=== PATIENT | female | born 1965 | race Caucasian/White ===

== ENCOUNTER 2020-02-04 08:52 | Outpatient (CLI) | payer BC, SELFPAY ==
--- NOTE | ~2020-02-04 | MM_ITS ---
EXAMINATION: MM screening [facility] w ruby HISTORY: Screening mammogram TECHNIQUE: Craniocaudal and mediolateral oblique 3-D tomosynthesis images were obtained and synthetic 2-D images were generated. CAD analysis was submitted and interpreted. COMPARISON: 01/2019, 01/02/2018, 01/31/2017 bilateral digital screening mammogram examinations BREAST PARENCHYMAL COMPOSITION: The breasts are extremely dense, which lowers the sensitivity of mamm ography. FINDINGS: There is no evidence of suspicious mass, calcification, or architectural distortion to sugg est malignancy in either breast. There has been no suspicious interval change. IMPRESSION: 1. No mammographic evidence of malignancy. 2. Recommend routine screening mammography in one year. BI-RADS Category 1: Negative Reviewed, dictated and finalized at location A. 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
== END 2020-02-04 08:53 | disposition home or self-care (01) ==
LOC: ANHIMG 08:54
PROVIDERS: PCP Internal Medicine; Visit Provider Nurse Practitioner Obstetrics & Gynecology
DX: Z12.31 Encounter for screening mammogram for malignant neoplasm of breast (principal)
CPT/HCPCS: 77063; 77067

== ENCOUNTER 2021-02-18 14:48 | Outpatient (CLI) | payer BC, SELFPAY ==
--- NOTE | ~2021-02-18 | MM_ITS ---
EXAMINATION: MM screening [facility] BI w ruby HISTORY: Screening mammogram TECHNIQUE: Craniocaudal and mediolateral oblique 3-D tomosynthesis images were obtained and synthetic 2-D images were generated. CAD analysis was submitted and interpreted. COMPARISON: 02/04/2020, 01/15/2019, 01/02/2018 BREAST PARENCHYMAL COMPOSITION: The breasts are heterogeneously dense, which may obscure small masses . FINDINGS: There is no evidence of suspicious mass, calcification, or architectural distortion to sugg est malignancy in either breast. There has been no suspicious interval change. IMPRESSION: 1. No mammographic evidence of malignancy. 2. Recommend routine screening mammography in one year. BI-RADS Category 1: Negative Reviewed, dictated and finalized at location A. 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
== END 2021-02-18 14:49 | disposition home or self-care (01) ==
LOC: ANHIMG 14:50
PROVIDERS: PCP Internal Medicine; Visit Provider Nurse Practitioner Obstetrics & Gynecology
DX: Z12.31 Encounter for screening mammogram for malignant neoplasm of breast (principal)
CPT/HCPCS: 77063; 77067

== ENCOUNTER → 2021-06-24 11:57 | Outpatient (CLI) | payer BC, SELFPAY ==
--- NOTE | ~2021-06-24 | DEXA_ITS ---
Bone Density Report Name: LEYLA CABA Age: 55 Sex: Female Ethnicity: White Date of : 1965 Indication: osteopenia; postmenopausal Referring Provider: Faraz, Carmen eBnitez Study: Bone densitometry was performed. Exam Date: June 24, 2021 Accession number: [id number] Bone Density: Region BMD T-score Z-score Classification AP Spine (L1, L3, L4) 0.909 -1.3 -0.3 Osteopenia Femoral Neck (Left) 0.685 -1.5 -0.4 Osteopenia Total Hip (Left) 0.789 -1.3 -0.6 Osteopenia Femoral Neck (Right) 0.726 -1.1 -0.1 Osteopenia Total Hip (Right) 0.782 -1.3 -0.7 Osteopenia Total Hip Mean 0.786 -1.3 -0.7 Osteopenia World Health Organization criteria for BMD impression classify patients as: Normal (T-score at or above -1.0), Osteopenia (T-score between -1.0 and -2.5), or Osteoporosis (T-score at or below -2.5). 10-year Fracture Risk(1): Major Osteoporotic Fracture 5.9% Hip Fracture 0.4% Reported Risk Factors: [place] (), Neck BMD=0.685, BMI=21.8 (1) FRAX(R) Version 3.08. Fracture probability calculated for an untreated patient. Fracture probability may be lower if the patient has received treatment. Previous Exams: Region Exam Age BMD T-score BMD Change BMD Change Date g/cm2 vs Baseline vs Previous AP Spine(L1, L3, L4) 06/24/2021 55 0.909 -1.3 -0.058* -0.026* 12/25/2018 53 0.935 -1.1 -0.031* -0.031* 03/03/2014 48 0.966 -0.8 Total Hip(Left) 06/24/2021 55 0.789 -1.3 -0.031* -0.029* 12/25/2018 53 0.818 -1.0 -0.002 -0.002 03/03/2014 48 0.821 -1.0 Total Hip(Right) 06/24/2021 55 0.782 -1.3 -0.059* -0.021 12/25/2018 53 0.802 -1.1 -0.038* -0.038* 03/03/2014 48 0.841 -0.8 *Denotes significance at 95% confidence level, LSC for AP Spine = 0.022 g/cm2, LSC for Total Hip = 0.027 g/cm2 Clinical Information Provided by Patient: Has used the following medications: Vitamin D, Calcium, MTV, LEVOTHYROXINE Patient maximum height was 70.5 Menopause Age: 43 No regular weight bearing exercise Drinks caffeinated beverages Onset of menses at age 13 Number of children 2 Impression: The patient has low bone mass, based on the Left Femoral Neck T-score. The patient has an estimated ten-year risk of hip fracture of 0.4% and an estimated ten-year risk of major fracture of 5.9%, based on the WHO FRAX algorithm. The BMD for th
== END ==
PROVIDERS: PCP Internal Medicine; Visit Provider Nurse Practitioner Obstetrics & Gynecology
DX: Z13.820 Encounter for screening for osteoporosis (principal); Z78.0 Asymptomatic menopausal state; M85.88 Other specified disorders of bone density and structure, other site; M85.851 Other specified disorders of bone density and structure, right thigh; M85.852 Other specified disorders of bone density and structure, left thigh
CPT/HCPCS: 77080

== ENCOUNTER 2022-03-24 10:00 | Outpatient (CLI) | payer BC, SELFPAY ==
--- NOTE | ~2022-03-24 | MM_ITS ---
EXAMINATION: MM screening [facility] w ruby HISTORY: Screening mammogram TECHNIQUE: Craniocaudal and mediolateral oblique and rotated lateral craniocaudal 3-D tomosynthesis i mages were obtained and synthetic 2-D images were generated. CAD analysis was submitted and interpret ed. COMPARISON: 02/18/2021, 02/04/2020, 01/2019 bilateral screening mammogram examinations BREAST PARENCHYMAL COMPOSITION: The breasts are extremely dense, which lowers the sensitivity of mamm ography. FINDINGS: There is no evidence of suspicious mass, calcification, or architectural distortion to sugg est malignancy in either breast. There has been no suspicious interval change. IMPRESSION: 1. No mammographic evidence of malignancy. 2. Recommend routine screening mammography in one year. BI-RADS Category 1: Negative Reviewed, dictated and finalized at location A. ET PUSHER
== END 2022-03-24 10:01 | disposition home or self-care (01) ==
PROVIDERS: PCP Internal Medicine; Visit Provider Nurse Practitioner Obstetrics & Gynecology
DX: Z12.31 Encounter for screening mammogram for malignant neoplasm of breast (principal)
CPT/HCPCS: 77063; 77067

== ENCOUNTER 2023-06-08 09:00 | Outpatient (CLI) | payer BC, SELFPAY ==
--- NOTE | ~2023-06-08 | MM_ITS ---
EXAMINATION: MM screening [facility] BI w ruby HISTORY: Screening mammogram TECHNIQUE: Craniocaudal and mediolateral oblique 3-D tomosynthesis images were obtained and synthetic 2-D images were generated. CAD analysis was submitted and interpreted. COMPARISON: March 24, 2022, February 18, 2021 bilateral screening mammogram examination BREAST PARENCHYMAL COMPOSITION: The breasts are extremely dense, which lowers the sensitivity of mamm ography. FINDINGS: There is no evidence of suspicious mass, calcification, or architectural distortion to sugg est malignancy in either breast. There has been no suspicious interval change. IMPRESSION: 1. No mammographic evidence of malignancy. 2. Recommend routine screening mammography in one year. BI-RADS Category 1: Negative Reviewed, dictated and finalized at location A.
== END 2023-06-08 09:01 | disposition home or self-care (01) ==
LOC: ANHIMG 09:02
PROVIDERS: PCP Internal Medicine; Visit Provider Nurse Practitioner Obstetrics & Gynecology
DX: Z12.31 Encounter for screening mammogram for malignant neoplasm of breast (principal)
CPT/HCPCS: 77063; 77067

== ENCOUNTER 2023-07-20 10:19 | Outpatient (CLI) | payer BC, SELFPAY ==
--- NOTE | ~2023-07-20 | DEXA_ITS ---
Bone Density Report Name: LEYLA CABA Age: 57 Sex: Female Ethnicity: White Date of : 1965 Indication: osteopenia; height loss; Referring Provider: Faraz, Carmen Benitez Study: Bone densitometry was performed. Exam Date: July 20, 2023 Accession number: [id number] Bone Density: Region BMD T-score Z-score Classification AP Spine (L1-L4) 0.955 -0.8 0.3 Normal Femoral Neck (Left) 0.706 -1.3 -0.2 Osteopenia Total Hip (Left) 0.774 -1.4 -0.6 Osteopenia Femoral Neck (Right) 0.727 -1.1 0.0 Osteopenia Total Hip (Right) 0.799 -1.2 -0.4 Osteopenia Total Hip Mean 0.787 -1.3 -0.5 Osteopenia World Health Organization criteria for BMD impression classify patients as: Normal (T-score at or above -1.0), Osteopenia (T-score between -1.0 and -2.5), or Osteoporosis (T-score at or below -2.5). 10-year Fracture Risk(1): Major Osteoporotic Fracture 6.3% Hip Fracture 0.4% Reported Risk Factors: [place] (), Neck BMD=0.706, BMI=22.4 (1) FRAX(R) Version 3.08. Fracture probability calculated for an untreated patient. Fracture probability may be lower if the patient has received treatment. Previous Exams: Region Exam Age BMD T-score BMD Change BMD Change Date g/cm2 vs Baseline vs Previous AP Spine(L1-L4) 07/20/2023 57 0.955 -0.8 -0.052* -0.052* 03/03/2014 48 1.007 -0.4 Total Hip(Left) 07/20/2023 57 0.774 -1.4 -0.046* -0.015 06/24/2021 55 0.789 -1.3 -0.031* -0.029* 12/25/2018 53 0.818 -1.0 -0.002 -0.002 03/03/2014 48 0.821 -1.0 Total Hip(Right) 07/20/2023 57 0.799 -1.2 -0.042* 0.017 06/24/2021 55 0.782 -1.3 -0.059* -0.021 12/25/2018 53 0.802 -1.1 -0.038* -0.038* 03/03/2014 48 0.841 -0.8 *Denotes significance at 95% confidence level, LSC for AP Spine = 0.022 g/cm2, LSC for Total Hip = 0.027 g/cm2 Clinical Information Provided by Patient: Has used the following medications: Vitamin D, Calcium, MTV, LEVOTHYROXINE Patient maximum height was 70.5 Menopause Age: 43 Drinks caffeinated beverages Onset of menses at age 13 Number of children 2 Impression: The patient has low bone mass, based on the Left Total Hip T-score. The patient has an estimated ten-year risk of hip fracture of 0.4% and an estimated ten-year risk of major fracture of 6.3%, based on the WHO FRAX algorithm. The BMD for the AP Spine(L1-L4) decreased, changing by -0.052 since the last DXA exam. Dis
== END 2023-07-20 10:20 ==
PROVIDERS: PCP Internal Medicine; Visit Provider Nurse Practitioner Obstetrics & Gynecology
DX: Z13.820 Encounter for screening for osteoporosis (principal); M85.852 Other specified disorders of bone density and structure, left thigh; M85.851 Other specified disorders of bone density and structure, right thigh
CPT/HCPCS: 77080

== ENCOUNTER 2023-10-05 10:47 | Outpatient (CLI) | payer BC, SELFPAY | END 2023-10-05 10:48 | disposition home or self-care (01) | LOC: ANHAUDIO 10:47 | PROVIDERS: PCP Internal Medicine; Visit Provider Otolaryngology | DX: H91.90 Unspecified hearing loss, unspecified ear (principal); H93.8X2 Other specified disorders of left ear | CPT/HCPCS: 92552; 92556; 92567 ==

== ENCOUNTER 2024-03-22 10:55 | Outpatient (CLI) | payer BC, SELFPAY ==
--- OUTSIDE RECORDS SUMMARY | 2024-03-22 10:42 | XMS_ITS | Data Portability ---
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 Patient will come back in a year unless there are new symptoms. Not available 12/31/2020 10:53:49 01/13/2022 01/13/2022 Annual gynecological exam performed. Patient will come back in a year unless there are new symptoms. Not available 01/13/2022 11:55:30 01/19/2023 01/19/2023 Annual gynecological exam performed. Patient will come back in a year unless there are new symptoms. [email or web address] Not available 01/19/2023 10:27:03 01/25/2024 01/25/2024 Annual gynecological exam performed. Patient will come back in a year unless there are new symptoms. Not available 01/25/2024 11:02:50 Plan of Treatment Reminders Order Date Submit Date Provider Last Modified By Organization Details Last Modified Time Details Appointments None recorded. Lab None recorded. Referral None recorded. Procedures None recorded. Surgeries None recorded. Imaging DEXA, axial skeleton + vertebral fracture assessment 2020 021 [facility], [address], [address] [address], [place], [address], 10:11:41 MAMMO, screening, bilateral 2021 022 [facility], [address], [address], [place], [address], 3 10:23:21 US, pelvis, complete 2021 022 [facility], [address], [address], [place], [address], 3 05:01:46 US, pelvis [email or web address], [address], [place], [address], 3 19:12:28 US, transvagina l 2022 023 [email or web address] [place] [facility], [address], [address], [place], [address], 3 19:12:28 MAMMO, screening, bilateral [address] [facility], [address], [place], [address], 4 16:03:57 DEXA, axial skeleton + vertebral fracture assessment [address], [address], [place], [address], 3 10:35:32 MAMMO, screening, digital, bilateral 2023 024 [facility], [address] [facility], [address], [place], [address], 4 04:01:12 US, breast, bilateral, complete 2023 024 [facility], [address] [facility], [address], 4 04:01:12 Medication Orders estradiol 0.01% (0.1 mg/gram) vaginal cream 2021 022 [facility] [place], [address], 2 12:19:29 Osphena 60 mg tablet 2021 022 [facility] [place], [address], 2 22:06:51 estradiol 0.01% (0.1 mg/gram) vaginal cream 2022 023 [facility] [address] [place], [address], 3 10:52:33 Osphena 60 mg tablet 2022 023 [facility] [address] [place], [address], 3 10:50:27 Osphena 60 mg tablet 2023 024 [facility] [address] [place], [address], 4 11:53:29 Patient TargetsNo targets recorded. Patient InstructionsNo instructions recorded. Reason for Referral None Reported. Results Created Date Observation Date Name Description Value Unit Range Abnormal Flag Note LastModifiedBy Organization Detail LastModifiedTime 01/14/20 22 01/13/2022 IMAGE GUIDE D PAP AND HPV REGAR DLESS image guided Pap, HPV regardless of Pap result SEE RESULT S BELOW CASE REPOR T: Cytol ogy Gynec ologi phuong Repor t Case: [id number] Autho [place]land [place] Provi yasmine: Dimitry Mathews Colle cted: 01/13 1616 ACCOUNT ADVISOR Order ing Locat ion: [place] Path[facility] [place] Recei ori: 01/14 0022 First Scree n: Jael Khan ret, CT Speci men: Scree bri Pap - Image d, Cervi x STATE MENT OF ADEQU ACY: Satis facto ry for evalu ation Trans forma tion zone compo nent prese nt FINAL DIAGN OSIS: Negat sammie for Intra epith elial Lesio n or [place] alan (NIL) . Elect mahendra del castillo chente d by Jael Khan ret, CT on 2021 at 3:55 PM ----- ----- ----- ----- ----- ----- ----- ----- ----- ----- ----- ----- ----- ----- ----- ----- ----- ---- HPV RESUL TS: HPV mRNA E6/E7 : No HPV mRNA Detec carly NOTE: This high risk HPV mRNA assay detec ts fourt een high- risk HPV types (16, 18, 31, 33, 35, 39, 45, 51, 52, 56, 58, 59, 66, 68) witho ut diffe renti ation . COMME NT: Note: This speci men was revie wed by a Cytot echno logis t and/o r Patho logis t (as indic ated in this repor t) after evalu ation using the Thinp rep Imagi ng Syste m. CLINI PHUONG INFOR MATIO N: Menst rual Statu s: LMP (if appli cable ): Clini phuong Histo ry/Pr eviou s Pap: Type of Neopl bill (if appli cable ): Signi fican t Clini phuong Findi ngs: Other Histo ry: Hormo linda (if appli cable ): PAP EDUCA HEAVENLY L NOTE: The Pap Test is a scree bri test with an inher ent false negat sammie rate. Liqui d-bas ed sampl ing may decre ase, but will not elimi linda, false negat sammie resul ts. A negat sammie resul t does not precl ude the prese nce and/o r devel opmen t of disea se, since the prese nce of abnor mal cells in the sampl e depen ds on the locat ion of the lesio n and sampl ing techn ique. Chastity nued regul ar scree bri is the best metho d of cance r preve ntion . If repor carly cytol ogic findi ng do not corre late with physi phuong and/o r histo rical findi ngs, furth er inves tigat ion is recom tomas d, as clini daja andino nted. Not Available [facility] (Lab) [address] [facility], [place], [address], 01/16/2022 16:58:12 01/20/20 23 01/19/2023 IMAGE GUIDE D PAP AND HPV REGAR DLESS image guided Pap, HPV regardless of Pap result SEE RESULT S BELOW CASE REPOR T: Cytol ogy Gynec ologi phuong Repor t Case: [id number] Autho roland johnston Provi yasmine: Dimitry Mathews Colle cted: 01/19 1527 ACCOUNT ADVISOR Order ing Locat ion: [place] Patho [place] Recei ori: 01/22 0650 First Scree n: Eric Lynne am, CT Speci men: Gómez gregory Pap - Image d, Cervi x STATE MENT OF ADEQU ACY: Satis facto ry for evalu ation Trans forma tion zone compo nent prese nt FINAL DIAGN OSIS: Negat sammie for Intra epith elial Juanito zapata or Quirino phillips (NIL) . Irish del castillo chente d by Eric Lynne am, CT on 01/24 at 10:31 AM ----- ----- ----- ----- ----- ----- ----- ----- ----- ----- ----- ----- ----- ----- ----- ----- ----- ---- HPV RESUL TS: HPV mRNA E6/E7 : No HPV mRNA Detec carly NOTE: This high risk HPV mRNA assay detec ts fourt een high- risk HPV types (16, 18, 31, 33, 35, 39, 45, 51, 52, 56, 58, 59, 66, 68) witho ut diffe renti ation . COMME NT: This speci men was revie wed by a Cytot echno logis t and/o r Patho logis t (as indic ated in this repor t) after evalu ation using the Thinp rep Imagi ng Syste m. CLINI PHUONG INFOR MATIO N: Menst rual Statu s: LMP (if appli cable ): Clini phuong Histo ry/Pr eviou s Pap: Type of Neopl bill (if appli cable ): Signi fican t Clini phuong Findi ngs: Other Histo ry: Hormo linda (if appli cable ): PAP EDUCA HEAVENLY L NOTE: The Pap Test is a scree bri test with an inher ent false negat sammie rate. Liqui d-bas ed sampl ing may decre ase, but will not elimi linda, false negat sammie resul ts. A negat sammie resul t does not precl ude the prese nce and/o r devel opmen t of disea se, since the prese nce of abnor mal cells in the sampl e depen ds on the locat ion of the lesio n and sampl ing techn ique. Chastity nued regul ar scree bri is the best metho d of cance r preve ntion . If repor carly cytol ogic findi ng do not corre late with physi phuong and/o r histo rical findi ngs, furth er inves tigat ion is recom tomas d, as clini daja warrlisa nted. Not Available [facility] (Lab) [address] [facility], [place], [address], 01/24/2023 11:35:42 01/25/20 24 01/25/2024 IMAGE GUIDE D PAP AND HPV REGAR DLESS image guided Pap, HPV regardless of Pap result SEE RESULT S BELOW CASE REPOR T: Cytol ogy Gynec ologi phuong Repor t Case: [id number] Autho rikael g Provi yasmine: Aurelia Henley, ACCOUNT ADVISOR Colle cted: 01/24 1312 Order ing Locat ion: [place] Patho wilma Dominique ori: 01/25 0212 First Gómez n: Frank hayden, Gillian parikh, CT Speci men: Gómez gregory Pap - Image d, Cervi x STATE MENT OF ADEQU ACY: Satis facto ry for evalu ation Trans forma tion zone compo nent canno t be defin itive ly ident ified due to the prese nce of atrop hy or other hormo nal hobson es ----- ----- ----- ----- ----- ----- ----- ----- ----- ----- ----- ----- ----- ----- ----- ----- ----- ---- FINAL DIAGN OSIS: Negat sammie for Intra epith elial Juanito zapata or Quirino phillips ([facility]) . Atrop hic cell marge norris. 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 COMME NT: This speci men was revie wed by a Cytot echno logis t and/o r Patho logis t (as indic ated in this repor t) after evalu ation using the Thinp rep Imagi ng Syste m. CLINI PHUONG INFOR MATIO N: Menst rual Statu s: LMP (if appli cable ): Clini phuong Histo ry/Pr eviou s Pap: Type of Neopl bill (if appli cable ): Signi fican t Clini phuong Findi ngs: Other Histo ry: Hormo linda (if appli cable ): PAP EDUCA HEAVENLY L NOTE: The Pap Test is a scree bri test with an inher ent false negat sammie rate. Liqui d-bas ed sampl ing may decre ase, but will not elimi linda, false negat sammie resul ts. A negat sammie resul t does not precl ude the prese nce and/o r devel opmen t of disea se, since the prese nce of abnor mal cells in the sampl e depen ds on the locat ion of the lesio n and sampl ing techn ique. Chastity nued regul ar scree bri is the best metho d of cance r preve ntion . If repor carly cytol ogic findi ng do not corre late with physi phuong and/o r histo rical findi ngs, furth er inves tigat ion is recom tomas d, as clini daja warra nted. Not Available [facility] (Lab) [address], [place], [address], 02/04/2024 22:08:28 03/03/19 22 MAMMO , scree bri, bilat eral No observ ation record ed. [email or web address] [address] [facility] [address], [place], [address], 01/13/2022 22:05:34 07/03/19 22 DEXA, axial skele ton + verte bral fract ure asses sment No observ ation record ed. [address] [facility] [address], [place], [address], 01/13/2022 22:05:34 02/17/19 23 02/17/2022 imagi ng/di agnos tic resul t No observ ation record ed. [facility] [address], [place], [address], 01/31/2023 21:06:36 02/17/19 23 02/17/2022 US, pelvi s No observ ation record ed. [email or web address], [place], [address], 02/17/2022 13:51:28 02/17/19 23 02/17/2022 US, trans vagin al No observ ation record ed. [email or web address], [place], [address], 02/17/2022 13:51:19 03/27/19 23 03/24/2022 MAMMO , scree bri, bilat eral No observ ation record ed. [place] [id number], [place], [address], 09/11/2022 11:58:35 07/27/19 24 07/20/2023 DEXA, axial skele ton + verte bral fract ure asses sment No observ ation record ed. [facility] [address], [place], [address], 02/07/2024 14:31:05 Result Notes Documentation Provider Name and Address Organization Details Recorded Time Dexa, Axial Skeleton + Vertebral Fracture Assessment : Could consider pharm therapy. If she has a molasses preparer let's just fax them these results & they can also manage if therapy is needed. MISTI Polk- [address], [place], [address], [place] [facility] 01/13/2022 22:05:34 Problems Name Problem SNOMED Code Status Onset Date Resolution Date Notes Provider Name and Address Organization Details Recorded Time Screenin g for malignan t neoplasm of rectum Completed 201412/30/2020 Encounter for screening for malignant neoplasm of rectum;Pr actice ID: [id number] Erika lawton, [facility] 17:17:09 Acute vaginiti s [id number] Completed 201512/30/2020 Acute vaginitis ;Practice ID: [id number] [facility] 17:17:00 Vaginola bial hernia Completed 201512/30/2020 Other specified noninflam matory disorders of vagina;Pr actice ID: [id number] [facility] 17:17:[address] Concept Completed 201512/30/2020 Encntr for hand plate stacker exam (general) (routine) w/o abn findings; Practice ID: [id number] Erika Simon [facility] 17:17:[address] Concept Completed 201612/30/2020 Encntr for general adult medical exam w/o abnormal findings; Practice ID: [id number] Erika Simon [facility] 17:17:11 Speciali zed medical examinat ion Completed 201112/30/2020 Gynecolog ical Examinati on;Record ed Elsewhere : No Locati on: [facility] So urce: EHR Chron ic: N Practic e ID: [id number] Bill able Time: 08:30:00 AM [facility] 17:17:14 Dyspareu erickson [id number] Completed 201112/30/2020 Dyspareun ia;Practi ce ID: 0001 Erika Simon [facility] 17:17:05 Vaginiti s and vulvovag initis Completed 201112/30/2020 Vaginitis and vulvovagi nitis, unspecifi ed;Practi ce ID: 0001 Erika Simon [facility] 17:17:16 Screenin g for malignan t neoplasm of cervix Completed 201112/30/2020 Pap Smear;Pra ctice ID: 0001 Erika Simon [facility] 17:17:07 Adult health examinat ion Completed 201312/30/2020 Routine general medical examinati on at a health care facility; Practice ID: 0001 Erika [facility] 17:17:02 Bone density finding [id number] Completed 201812/30/2020 Oth disrd of bone density and structure , unspecifi ed site;Nemesio rded Elsewhere : No Locati on: [facility] So urce: EHR Chron ic: N Practic e ID: 0001 Bill able Time: 01:23:55 PM Erika Simon [facility] 17:17:04 Problem Notes None recorded. Procedures Surgical History Date Name Laterality Status Provider Name and Address Organization Details Recorded Time 024 Date of Last Mammogram completed [facility] 01/25/2024 11:12:52 023 Date of Last Pap Smear completed [facility] 01/25/2024 11:11:37 022 Most Recent Bone Density completed [facility] 01/13/2022 11:56:41 019 completed [facility] 12/31/2020 10:28:18 017 completed [facility] 12/31/2020 10:55:04 017 Date of Last Colonoscopy completed [facility] 12/31/2020 10:55:04 016 colonoscopy completed MISTI Polk- [address], [place], [address], [facility] 12/31/2020 11:03:29 Cholecystectomy completed [facility] 12/31/2020 10:55:15 Cryotherapy/Cryoca utery completed [facility] 12/31/2020 10:55:15 Imaging Results Imaging Date Name Status LastModified by Organization Details LastModified Time 03/03/2021 MAMMO, screening, bilateral completed [address] [facility] [address], [place], [address], 01/13/2022 22:05:34 07/02/2021 DEXA, axial skeleton + vertebral fracture assessment completed [address] [facility] [address], [place], [address], 01/13/2022 22:05:34 02/17/2022 imaging/diagnost ic result [facility] [address], [place], [address], 01/31/2023 21:06:36 02/17/2022 [facility] [address], [place], [address], 02/17/2022 13:51:28 02/17/2022 US, transvaginal [facility] [address], [place], [address], 02/17/2022 13:51:19 03/24/2022 MAMMO, screening, bilateral completed [address], [place], [address], 09/11/2022 11:58:35 07/20/2023 DEXA, axial skeleton + vertebral fracture assessment completed [facility] [address], [place], [address], 02/07/2024 14:31:05 Procedure Notes None recorded. Medical Equipment None Reported. Allergies Allergen ID Allergen Name Allergen Category Reaction Reaction Severity Criticality Documentation Date Start Date Code Code System Note Provider Name and Address Organization Details Recorded Time 78128 xylitol food,medi cation abdominal pain severe Not available 01/30/2020 39434 RxNorm Erika [facility] 1 10:54:39 17363 cefuroxim e Not available nausea severe Not available 12/31/2020 2194 RxNorm Erika [facility] 1 10:54:39 Medications Name Sig Start Date Stop Date Status Note LastModified by Organization Details LastModified Time Prometriu m 200 mg capsule take 1 capsule (200MG) by oral route every day for 30 days 02/24 completed Prescrib ed Elsewher e: No Locat ion: Michele orourke [facility] odify By: skye bustos DateTime : 01/27/20 15 09:25:58 AM Not Available Not Available Not Available cyclobenz aprine 10 mg tablet TAKE 1 TABLET BY MOUTH AT BEDTIME NEEDED FOR MUSCLE SPASM active Not Available Not Available No t Available amoxicill in 500 mg capsule take 1 capsule (500MG) by oral route 3 times every day for 10 days 06/21 completed Prescrib ed Elsewher e: No Locat ion: Michele orourke [facility] odify By: bella Encount er DateTime : 06/13/19 12 04:51:53 PM Not Available Not Available Not Available Miralax 17 gram/dose oral powder take by oral route every day mixed with 8 oz. water, juice, soda, coffee or tea 01/03 completed Prescrib ed Elsewher e: Yes Loca tion: Michele orourke [facility] odify By: elma ling DateTime : 10/26/19 16 04:45:00 PM Not Available Not Available Not Available Estring 2 mg (7.5 mcg/24 hour) vaginal ring insert 1 vaginal ring by vaginal route every 90 days 01/13 completed Prescrib ed Elsewher e: No Locat ion: Michele orourke [facility] odify By: fab bustos DateTime : 07/19/19 12 09:52:27 AM Not Available Not Available Not Available vitamin E 100 unit capsule active Prescrib ed Elsewher e: Yes Loca tion: Michele orourke [facility] odify By: maikol Ramirez r DateTime : 10/26/19 16 04:45:00 PM Not Available Not Available Not Available ciproflox acin 250 mg/5 mL oral suspensio n take 10 millilit er by oral route every 12 hours 12/18 completed Prescrib ed Elsewher e: No Locat ion: Michele orourke [facility] odify By: maikol Ramirez r DateTime : 10/22/19 19 11:31:11 AM Not Available Not Available Not Available Zithromax Z-Jerson 250 mg tablet take 2 tablet (500MG) by oral route every day for 1 day then 1 tablet (250 mg) by oral route once daily for 4 days 06/02 completed Prescrib ed Elsewher e: No Locat ion: Michele orourke [facility] odify By: cmedical Encount er DateTime : 05/26/19 12 02:45:26 PM Not Available Not Available Not Available Diflucan 150 mg tablet take 1 tablet by oral route once every other day 01/22 completed Prescrib ed Elsewher e: No Locat ion: Michele orourke [facility] odify By: maikol Ramirez r DateTime : 01/14/20 19 02:39:37 PM Not Available Not Available Not Available Flonase 50 mcg/actua tion nasal spray,arlene pension spray 1 spray by intranas al route every day in each nostril 01/13 completed Prescrib ed Elsewher e: Yes Loca tion: Michele orourke [facility] odify By: fab bustos DateTime : 05/23/19 12 10:15:00 AM Not Available Not Available Not Available chlorthal idone 25 mg tablet TAKE 1 TABLET BY MOUTH ONCE DAILY active Not Available Not Available No t Available terconazo le 80 mg vaginal supposito ry insert 1 supposit ory by vaginal route every day at bedtime 12/30 completed Not Available Not Available Not Available flaxseed oil 1,000 mg capsule 10/25 completed Prescrib ed Elsewher e: Yes Loca tion: Michele orourke [facility] odify By: maikol duong DateTime : 12/19/19 01:30:00 PM Not Available Not Available Not Available Metrogel Vaginal 0.75 % (37.5 mg/5 gram) insert 1 applicat orful (37.5MG) by vaginal route every day at bedtime 01/08 completed Prescrib ed Elsewher e: No Locat ion: Michele orourke [facility] odify By: jennifer ling DateTime : 05/15/19 03:32:51 PM Not Available Not Available Not Available Vitamin C 1,000 mg tablet 01/13 completed Prescrib ed Elsewher e: Yes Loca tion: Michele orourke [facility] odify By: jarett bustos DateTime : 04/18/19 12 10:30:00 AM Not Available Not Available Not Available Multiple Vitamin tablet take 1 tablet by oral route every day with food 2011 active Prescrib ed Elsewher e: No Locat ion: Michele orourke [facility] odify By: jarett bustos DateTime : 04/18/19 12 10:30:00 AM Not Available Not Available Not Available levothyro xine 125 mcg tablet TAKE 1 TABLET BY MOUTH ONCE DAILY active Not Available Not Available No t Available hydrochlo rothiazid e 12.5 mg capsule 01/19 completed Not Available Not Available Not Available Synthroid 75 mcg tablet take 1 tablet by oral route every day 12/31 completed Prescrib ed Elsewher e: Yes Loca tion: Michele orourke [facility] odify By: jarett bustos DateTime : 04/18/19 12 10:30:00 AM Not Available Not Available Not Available Replens vaginal gel apply a fingerti p amount to external vaginal area as needed or daily for dry external skin 12/31 completed Prescrib ed Elsewher e: No Locat ion: Michele orourke [facility] odify By: bchaemanuel bustos DateTime : 03/14/19 02:07:37 PM Not Available Not Available Not Available azelastin e 137 mcg (0.1 %) nasal spray 12/31 completed Not Available Not Available Not Available estradiol 0.01% (0.1 mg/gram) vaginal cream APPLY CREAM TOPICALL Y TO VULVA ALONG WITH COCONUT OIL TWICE A WEEK. active Not Available Not Available No t Available scopolami ne 1 mg over 3 days transderm al patch APPLY ONE PATCH TOPICALL Y EVERY 3 DAYS NEEDED FOR MOTION SICKNESS . 01/19 completed Not Available Not Available Not Available Vitamin D2 1,250 mcg (50,000 unit) capsule take 1 capsule by oral route every week 12/31 completed Prescrib ed Elsewher e: Yes Loca tion: Michele orour[facility] odify By: dwight Orourke ncounter DateTime : 01/03/20 18 08:15:00 AM Not Available Not Available Not Available magnesium 30 mg tablet 12/31 completed Prescrib ed Elsewher e: Yes Loca tion: Michele orourke [facility] odify By: jarett bustos DateTime : 04/18/19 12 10:30:00 AM Not Available Not Available Not Available Acidophil us capsule 01/03 completed Prescrib ed Elsewher e: Yes Loca tion: Michele orourke [facility] odify By: elma Orourke ncounter DateTime : 04/18/19 12 10:30:00 AM Not Available Not Available Not Available iron 18 mg tablet 01/08 completed Prescrib ed Elsewher e: Yes Loca tion: Michele orourke [facility] odify By: jennifer Orourke ncounter DateTime : 04/18/19 12 10:30:00 AM Not Available Not Available Not Available Calcium+D 400 mg -133.3 unit tablet active Prescrib ed Elsewher e: Yes Loca tion: Michele orourke [facility] odify By: jarett bustos DateTime : 04/18/19 12 10:30:00 AM Not Available Not Available Not Available Metamucil 0.52 gram capsule 12/31 completed Prescrib ed Elsewher e: Yes Loca tion: Michele orourke [facility] odify By: adminnelatesha Encountaniya er DateTime : 10/26/19 16 04:45:00 PM Not Available Not Available Not Available magnesium active Not Available Not Neelima ilable Not Available Vitamin C active Not Available Not Neelima ilable Not Available levothyro xine 1 125 mcg daily 12/31 completed Not Available Not Available Not Available calcium 12/31 completed Not Available Not Available Not Available vitamin E 12/30 completed Not Available Not Available Not Available Vitamin D 12/30 completed Not Available Not Available Not Available Vitamin D3 active 1999 UI Not Available Not Available Not Available Flax Seed Oil active Not Available Not Available Not Available Super B Complex + C 150 mg tablet active Prescrib ed Elsewher e: Yes Loca tion: Michele orourke [facility] odify By: maikol Ramirez r DateTime : 10/26/19 16 04:45:00 PM Not Available Not Available Not Available Numoisyn oral mucosal liquid 12/18 completed Prescrib ed Elsewher e: Yes Loca tion: Michele orourke [facility] odify By: maikol Ramirez r DateTime : 01/03/20 18 08:15:00 AM Not Available Not Available Not Available Lamisil AT 1 % topical gel 01/03 completed Prescrib ed Elsewher e: Yes Loca tion: Michele orourke [facility] odify By: elma ling DateTime : 01/04/20 16 10:30:00 AM Not Available Not Available Not Available Briana Navas 01/24 completed Not Available Not Available Not Available Multi Vitamin 12/31 completed Not Available Not Available Not Available Osphena 60 mg tablet Take 1 Tablet by mouth daily with food. 2023 active Not Available Not Available Not Avai lable Osphena 12/30 completed Not Available Not Available Not Available Cosamin DS (with manganese ) 500 mg-400 mg-2 mg-0.33 mg capsule 12/18 completed Prescrib ed Elsewher e: Yes Loca tion: Michele orourke [facility] odify By: maikol Encounsanty r DateTime : 01/03/20 18 08:15:00 AM Not Available Not Available Not Available turmeric 400 mg capsule active Prescrib ed Elsewher e: Yes [facility] By: [email or web address] Encounte r DateTime : 12/19/19 01:30:00 PM Not Available Not Available Not Available Flucelvax Quad (PF) 60 mcg (15 mcg x 4)/0.5 mL IM syringe PHARMACY ADMINIST EREMayank 12/30 completed Not Available Not Available Not Available Vitals Date Recorded Body height Body mass index (BMI) Body weight Systolic blood pressure Diastolic blood pressure Provider Name and Address Organization Details Last Updated DateTime 12/31/2020 176.53 cm 22.3 kg/m2 09148.63 g 121 mm[Hg] 75 mm[Hg] [facility] 1 10:54:34 Date Recorded Body height Body weight Body mass index (BMI) Systolic blood pressure Diastolic blood pressure Provider Name and Address Organization Details Last Updated DateTime 01/13/2022 175.26 cm 79261.63 g 22.6 kg/m2 120 mm[Hg] 76 mm[Hg] [facility] 2 11:56:20 Date Recorded Body height Body mass index (BMI) Body weight Systolic blood pressure Diastolic blood pressure Provider Name and Address Organization Details Last Updated DateTime 01/19/2023 175.26 cm 22.7 kg/m2 44160.22 g 111 mm[Hg] 70 mm[Hg] Cristina Campos [facility] 3 10:28:49 Date Recorded Body height Body mass index (BMI) Body weight Systolic blood pressure Diastolic blood pressure Provider Name and Address Organization Details Last Updated DateTime 01/25/2024 175.26 cm 23 kg/m2 85430.41 g 111 mm[Hg] 69 mm[Hg] Audrey Sotelo [facility] 4 11:07:56 Social History Question Answer Notes LastModified by Organizat ion Details LastModified Time Tobacco Smoking Status Never Smoker Audrey lawton [facility] 01/19/2023 10:20:45 Do You Have An Advance Directive? No Information not available 12/31/2020 What Is Your Level Of Alcohol Consumption? None Information not available 12/30/2020 Are You Blind Or Do You Have Difficulty Seeing? No Information not available 12/30/2020 What Is Your Level Of Caffeine Consumption? Occasional Information not available 12/30/2020 How Much Tobacco Do You Chew? None Information not available 12/31/2020 In The 14 Days Before Symptom Onset, Have You Had Close Contact With A Laboratory-confir med COVID-19 While That Case Was Ill? No Information not available 12/31/2020 In The 14 Days Before Symptom Onset, Have You Had Close Contact With A Person Who Is Under Investigation For COVID-19 While That Person Was Ill? No Information not available 12/31/2020 Have You Been To An Area Known To Be High Risk For COVID-19? No Information not available 12/31/2020 Are You Deaf Or Do You Have Serious Difficulty Hearing? No Information not available 12/30/2020 What Type Of Diet Are You Following? REGULAR Information not available 12/30/2020 What Is The Highest Grade Or Level Of School You Have Completed Or The Highest Degree You Have Received? 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 No Information not available 12/31/2020 Do You Use Protection During Sex? No Information not available 12/31/2020 Do You Use Your Seat Belt Or Car Seat Routinely? Yes Information not available 12/30/2020 Do You Have Smoke And Carbon Monoxide Detectors In Your Home? Yes Information not available 12/30/2020 How Much Tobacco Do You Smoke? No Information not available 12/31/2020 Do You Feel Stressed (tense, Restless, Nervous, Or Anxious, Or Unable To Sleep At Night)? [id number] Information not available 12/31/2020 Do You Use Any Illicit Or Recreational Drugs? No Information not available 12/30/2020 Do You Use Sunscreen Routinely? Yes Information not available 12/30/2020 Have You Used IV Drugs? No Information not available 12/31/2020 Sex: Unknown Functional Status Question Answer Note LastModified by Organizat ion Details LastModified Time Do you have difficulty walking or climbing stairs? No [email or web address] Information not available 01/19/2023 Are you able to walk? YESWOREST Information not available 12/30/2020 Are you able to care for yourself? Yes [email or web address] Information not available 01/19/2023 Do you have difficulty dressing or bathing? No [email or web address] Information not available 01/19/2023 What is your exercise level? Occasional Information not available 12/30/2020 Mental Status None recorded. Family History Relationship Description Onset Age of this Age Resolved Age Notes LastModified by Organization Details LastModified Time Father Hypertensive disorder Not available 2020 20:37:06 Maternal Grandmother Diabetes mellitus Not available 2020 10:54:44 Mother Diabetes mellitus Not available 2020 20:37:23 Mother Hypertensive disorder Not available 2020 20:37:30 Maternal Grandfather Diabetes mellitus Not available 2020 10:54:44 Medical History Condition Response Other Y History of abnormal pap Y Thyroid Problems Y Gynecological History Statement/Question Response Date of Last Mammogram 06/08/2023 Date of LMP 04/14/2009 N Was last menstrual period normal N STIs/STDs N 12/18/2018 If Post Menopausal, Age at Menopause 43 Date of Last Colonoscopy 09/21/2016 Abnormal Pap Y On BCP's at Conception? N HPV Vaccine N Current Control Method Menopause 12 Age at First Child 28 Most Recent Bone Density 06/24/2021 Sexually Active? Y Menses Monthly N Date of DEXA bone scan 07/20/2023 Age of first menstrual cycle 13 Date of Last Pap Smear 01/19/2023 Sexual Problems? N LMP Definite 09/21/2016 N 02/13/1988 Obstetrics History GPAL:G 2 P 0 0 0 2 Type Value Living 2 Total 2 Past Encounters Encounter ID Performer Location Encounter Start Date Encounter Closed Date Diagnosis/Indication Diagnosis SNOMED-CT Code Diagnosis ICD10 Code Diagnosis Note [id number] Carmen Ruth , [facility] [address] [address] 12/31/2019 09:42:02 12/31/2019 11:53:01 Gynecologic examination 94820797 Z01.419 Take Calcium with Vitamin D 12-1500mg daily. Do monthly self breast exams. It is advised to get annual flu shot in the fall and she could obtain at [facility] or [facility] clinic. If you haven't received the Tdap vaccine in the last 10 years you should obtain one as well. Have mammogram yearly, bone density every 2-3 years and colonoscop y every 5-10 years depending on findings and history. Engage in daily exercise of low impact aerobic exercise 45-60 minutes 4-5 times weekly. Avoid tobacco and illicit drugs as well as using moderation with alcohol intake less than 1-2 8 oz beverages daily. This lifestyle behavior pattern will lead to less health conditions and longer life span. If BMI greater than 25 weight watchers or dietary consult advised. Questions have been answered. Patient appears to understand instructio ns, but if you have any further questions call or respond to this email -Pap and HPV done today -Patient is postmenopa usal, sexually active with steady partner -Complaint s of vaginal dryness, patient is currently taking Osphena and desires to continue use, refills sent to patient pharmacy -Educated patient about vaginal moisturizi ng routine, patient desires to try this out. Patient to follow-up if this is not helping and will discuss further treatment options at that time -RTC in 1 year for wellness exam or PRN Vaginal dryness 31729320 N89.8 Today, we agreed to continue Osphena and add vaginal moisturizi ng. If not sufficient will return to consider d/c osphena & trial imvexxy or intrarosa. Neg PMB or pelvic pain. Consider yearly US with use of osphena with intact uterus. [id number] Carmen Ruth , [facility] [address] [address] 12/31/2020 10:34:03 12/31/2020 11:41:48 Gynecologic examination 60891375 Z01.419 Take Calcium with Vitamin D 12-1500mg daily. Do monthly self breast exams. It is advised to get annual flu shot in the fall and she could obtain at [facility] or [facility] care clinic. If you haven't received the Tdap vaccine in the last 10 years you should obtain one as well. Have mammogram yearly, bone density every 2-3 years and colonoscop y every 5-10 years depending on findings and history. Engage in daily exercise of low impact aerobic exercise 45-60 minutes 4-5 times weekly. Avoid tobacco and illicit drugs as well as using moderation with alcohol intake less than 1-2 8 oz beverages daily. This lifestyle behavior pattern will lead to less health conditions and longer life span. If BMI greater than 25 weight watchers or dietary consult advised. Questions have been answered. Patient appears to understand instructio ns, but if you have any further questions call or respond to this email Pap/hpvSTD declinedMa mmoColon-a Site Tour 51yoDexa-G enetic screen discussed Postmenopa usal osteopenia [id number] M85.80 Doing well & stable on Osphena with no SE's or AUB.Also uses a very small amount of estrace topically approx 0-1x a week along with coconut oil daily.Wish es to continue these therapies. Will let us know when needs RF's Dyspareunia 96145816 N94 .10 [id number] Carmen Ruth , [facility] [address] [address] 01/13/2022 11:40:06 01/16/2022 16:03:14 Gynecologic examination 27880774 Z01.419 Take Calcium with Vitamin D 12-1500mg daily. Do monthly self breast exams. It is advised to get annual flu shot in the fall and she could obtain at [facility] or [facility] care clinic. If you haven't received the Tdap vaccine in the last 10 years you should obtain one as well. Have mammogram yearly, bone density every 2-3 years and colonoscop y every 5-10 years depending on findings and history. Engage in daily exercise of low impact aerobic exercise 45-60 minutes 4-5 times weekly. Avoid tobacco and illicit drugs as well as using moderation with alcohol intake less than 1-2 8 oz beverages daily. This lifestyle behavior pattern will lead to less health conditions and longer life span. If BMI greater than 25 weight watchers or dietary consult advised. Questions have been answered. Patient appears to understand instructio ns, but if you have any further questions call or respond to this email Pap/hpv sentSTD Screen declinedGe netic Screen discussedC olon Screen PCPDexa Screen PCPRoutine Labs PCPMammo ordered Screening mammography 24 472457 Z12.31 Atrophic vaginitis 41612 000 N95.2 Stable on this topical therapy that uses about once a week which continues to keep vulvar skin supple and intact.RF sent Endometrium thickened 44 8827822 R93.89 No evidence of PMB/thicke thierno lining up to now.Yearly US to be completed since she is on Osphena to ensure absence of these issues.Liam brock schedule Postmenopa usal osteopenia 858817756 M85.80 Doing well & stable on Osphena with no SE's or AUB.Also uses a very small amount of estrace topically approx 0-1x a week along with coconut oil daily.Wish es to continue these therapies. Will let us know when needs RF's [id number] Pamela Pisano [facility] [address] [address] 02/17/2022 11:57:27 02/17/2022 13:51:55 Endometrium thickened 609357549 R93.89 [id number] Carmen Ruth [facility] [address] [address] 01/19/2023 10:20:37 01/19/2023 10:54:23 Gynecologic examination 27029233 Z01.419 Z11.51 Take Calcium with Vitamin D 12-1500mg daily. Do monthly self breast exams. It is advised to get annual flu shot in the fall and she could obtain at [facility] or [facility] take care clinic. If you haven't received the Tdap vaccine in the last 10 years you should obtain one as well. Have mammogram yearly, bone density every 2-3 years and colonoscop y every 5-10 years depending on findings and history. Engage in daily exercise of low impact aerobic exercise 45-60 minutes 4-5 times weekly. Avoid tobacco and illicit drugs as well as using moderation with alcohol intake less than 1-2 8 oz beverages daily. This lifestyle behavior pattern will lead to less health conditions and longer life span. If BMI greater than 25 weight watchers or dietary consult advised. Questions have been answered. Patient appears to understand instructio ns, but if you have any further questions call or respond to this email Pap/hpvSTD declinedMa mmoColon-a ge 51yoDexa- ordered 06/2023Gene tic screen discussed Postmenopa usal osteopenia 607921104 M85.80 Doing well & stable on Osphena with no SE's or AUB.Also uses a very small amount of estrace topically approx 0-1x a week along with coconut oil daily.Wish es to continue these therapies. Will let us know when needs RF's Screening mammography 24 749052 Z12.31 Screening for osteoporosis 752631636 Z13.820 due 06/2023 Atrophic vaginitis 01653 000 N95.2 Stable on this topical therapy that uses about once a week which continues to keep vulvar skin supple and intact.RF sent [id number] MISTI Chang [facility] [address] [address] 01/25/2024 10:27:17 01/25/2024 11:55:51 Gynecologic examination 14470955 Z01.419 WWEpostmen opausalPap - updatedSTI screen - declinedMa mmogram - order given with u/s per pt requestCol on cancer screening - UTDDexa - UTDRoutine labs - UTD/PCPRTC in 1 yr or sooner if needed Do monthly self breast exams.It is advised to get annual flu shot in the fall and she could obtain at local pharmacy. If you haven't received the Tdap vaccine in the last 10 years you should obtain one as well.Have mammogram yearly, bone density every 2-3 years and stay up to date on colon cancer screening. Engage in regular exercise. Avoid tobacco and illicit drugs. This lifestyle behavior pattern will lead to less health conditions and longer life span. If BMI greater than 25 dietary consult advised.Qu estions have been answered. Screening for malignant neoplasm of breast 876399236 Z12.39 Vaginal dryness 00549859 N89.8 stable on this therapy for many years, has tried to d/c before and symptoms return terribly refills sent, r/b/a reviewed - alternativ e options discussedv ulvar care guidelines discussed Health Concerns Section Related Observation LastModified by Organization Detai ls LastModified Time None Recorded Concern Status LastModified by Organization Details LastModified Time None Recorded Advance Directives Directive N: Payers Encounter Date Sequence Insurance Name Policy Number Policy Dominguez Covered Member ID Dominguez Member ID Guarantor Name 12/31/2020 1 [employer] [employer] ([place]) [address] Karson Bernard [id number] Lori Bernard 01/13/2022 1 [employer] [employer] [place] [place] 113 Karson Bernard [id number] Lori Bernard 02/17/2022 1 [place] [employer] [place] [place] 113 Karson Bernard [id number] Lori Bernard 01/19/2023 1 [place] [employer] [place] [place] 113 Karson Bernard [id number] Lori Bernard 01/25/2024 1 [place] [employer] [place] [place] 113 Karson Bernard [id number] Lori Bernard Notes Date Note Type Note Provider Name and Address Organization Details Recorded Time 1 text/html Annual Technical Coordinator Post-MenopausalReported bypatient.Menopausal Symptoms:no menopausal symptoms; normal vaginal lubrication Vaginal Bleeding:history of menopause having occurred; no history of post menopausal bleeding Urinary Symptoms:no hematuria; no incontinence; no nocturia; no urinary frequency Vulva:no genital lesion; no vulvar atrophy Vagina:normal vaginal discharge; no vaginal atrophy Breast:no breast lump; no nipple discharge; no breast pain Sexual Complaints:no sexual complaints Psychological Symptoms:no depression; no anxiety Preventive Measures:encourage regular mammograms starting age 40; encourage self breast examination; encourage regular exercise; encourage no tobacco use; needs to schedule mammogram; history of recent colonoscopy; needs to schedule bone density Carmen Ruth [facility] [address], [place], [address], [facility] 12/31/2020 11:21:12 2 text/html Annual Technical Coordinator Post-MenopausalReported bypatient.Menopausal Symptoms:no menopausal symptoms; normal vaginal lubrication Vaginal Bleeding:history of menopause having occurred; no history of post menopausal bleeding Urinary Symptoms:no hematuria; no incontinence; no nocturia; no urinary frequency Vulva:no genital lesion; no vulvar atrophy Vagina:normal vaginal discharge; no vaginal atrophy Breast:no breast lump; no nipple discharge; no breast pain Sexual Complaints:no sexual complaints Psychological Symptoms:no depression; no anxiety Preventive Measures:encourage regular mammograms starting age 40; encourage self breast examination; encourage regular exercise; encourage no tobacco use; needs to schedule mammogram; history of recent colonoscopy [facility] [address], [place], [address], [facility] 01/13/2022 22:08:40 3 text/html Annual Technical Coordinator Post-MenopausalReported bypatient.Menopausal Symptoms:no menopausal symptoms; normal vaginal lubrication Vaginal Bleeding:history of menopause having occurred; no history of post menopausal bleeding Urinary Symptoms:no hematuria; no incontinence; no nocturia; no urinary frequency Vulva:no genital lesion; no vulvar atrophy Vagina:normal vaginal discharge; no vaginal atrophy Breast:no breast lump; no nipple discharge; no breast pain Sexual Complaints:no sexual complaints Psychological Symptoms:no depression; no anxiety Preventive Measures:encourage regular mammograms starting age 40; encourage self breast examination; encourage regular exercise; encourage no tobacco use; needs to schedule mammogram; history of recent colonoscopy; needs to schedule bone density SHAHID Polk [address], [place], [address], [facility] 01/19/2023 10:53:46 4 text/html Annual Technical Coordinator Post-MenopausalReported bypatient.Menopausal Symptoms:no menopausal symptoms; normal vaginal lubrication Vaginal Bleeding:history of menopause having occurred; no history of post menopausal bleeding Urinary Symptoms:no hematuria; no incontinence; no nocturia; no urinary frequency Vulva:no genital lesion; no vulvar atrophy Vagina:normal vaginal discharge; no vaginal atrophy Breast:no breast lump; no nipple discharge; no breast pain Sexual Complaints:no sexual complaints Psychological Symptoms:no depression; no anxiety Preventive Measures:encourage regular mammograms starting age 40; encourage self breast examination; encourage regular exercise; encourage no tobacco use; mammogram performed within the past year; history of recent colonoscopyNotes:58yo wwepostmenopausallast pap 01/2023 : nilm, HPV (-)mammogram last 05/2023 (dense breast, would like order for u/s as well)dexa UTD 2023, osteopeniacolonoscopy UTD on osphena for years for vaginal dryness, has tried to d/c therapy and symptoms return. Desires to continue this medication. MISTI Chang [address], [place], [address], [facility] 01/25/2024 11:55:35 OBGyn Episode Ob Episode Information Episode Created Date Number of Fetuses Patient Bloodtype Patient rh Status Prepregnancy Weight lbs Domestic Partner Domestic Partner Phone Father Name Corn Miller Status 01/01/20 21 1 CLOSED Fetus Data First Name Last Name Admitted to NICU Weight (g) Sex Living Outcome Pediatric Complications Fetus ID Race Codes Race Delivery Type F [id number] Vaginal Delivery Hank Calculation Initial Hank Date Initial Exam Date Initial Exam Provider Initial Ultrasound Date Last Menstrual Period Date Ultra Sound Weeks Gestation 0 Eighteen To Twenty Week Hank Update Ultra Sound Date Fundal Height At Umbil Quickening Date Ultra Sound Latest Weeks Gestation Final Hank Confirmed By Final Hank Confirmed Date Final Hank Date Ultra Sound Latest Days Gestation 0 0 Menstrual History Last Menstrual Date Menses Monthly On Bcp Conception Prior Menses Frequency Hcg Plus Date Menarche Onset Age Delivery Information Delivery Date Delivery Type Labor Anesthesia Weeks Gestation Incision Type Labor Labor Length Hrs Delivered By Post Complications Tubal Sterilization Discharge Date Comments 8 Discharge Information Feeding Method Contraceptive Method Maternal HG B and HCT Levels Ob Episode Information Episode Created Date Number of Fetuses Patient Bloodtype Patient rh Status Prepregnancy Weight lbs Domestic Partner Domestic Partner Phone Father Name Corn Miller Status 01/01/20 21 1 CLOSED Fetus Data First Name Last Name Admitted to NICU Weight (g) Sex Living Outcome Pediatric Complications Fetus ID Race Codes Race Delivery Type M [id number] Vaginal Delivery Hank Calculation Initial Hank Date Initial Exam Date Initial Exam Provider Initial Ultrasound Date Last Menstrual Period Date Ultra Sound Weeks Gestation 0 Eighteen To Twenty Week Hank Update Ultra Sound Date Fundal Height At Umbil Quickening Date Ultra Sound Latest Weeks Gestation Final Hank Confirmed By Final Hank Confirmed Date Final Hank Date Ultra Sound Latest Days Gestation 0 0 Menstrual History Last Menstrual Date Menses Monthly On Bcp Conception Prior Menses Frequency Hcg Plus Date Menarche Onset Age Delivery Information Delivery Date Delivery Type Labor Anesthesia Weeks Gestation Incision Type Labor Labor Length Hrs Delivered By Post Complications Tubal Sterilization Discharge Date Comments 4 Discharge Information Feeding Method Contraceptive Method Maternal HG B and HCT Levels
--- OUTSIDE RECORDS SUMMARY | 2024-03-22 10:58 | XMS_ITS | Encounter Summary ---
Author Organization [facility] Address [address] [facility] [address] [place] [address] Phone Care Team Providers Care Culinary Assistant Name Role Phone Karson Miranda MD Primary Care Provider [phone] Wali Sullivan DO Primary Care Provider [phone] Encounter Details Date Type Department Care Team (Latest Contact Info) Description 07/20/2023 Orders Only [facility] Scanning, Provider Social History Tobacco Use Types Packs/Day Years Used Date Smoking Tobacco: Never Passive Smoke Exposure: Never Smokeless Tobacco: Never AUDIT-C Answer Date Recorded Q1: How often do you have a drink containing alc ohol? 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 Gender Identity Female 11/10/2023 7:03 PM CDT Sexual Orientation Straight 11/10/2023 7: 03 PM CDT documented as of this encounter Plan of Treatment Not on file documented as of this encounter Procedures Procedure Name Priority Date/Time Associated Diagnosis Comments SCAN - RADIOLOGY/IMAGING 07/20/2023 documented in this encounter Results * SCAN - RADIOLOGY/IMAGING (07/20/2023) Anatomical Region Laterality Modality Other us Provider Scanning Final Result documented in this encounter Visit Diagnoses Not on filedocumented in this encounter Care Teams Culinary Assistant Relationship Specialty Start Date End Date Karson Miranda MD [address] [place] [address] PCP - General Internal Medicine 08/19/21 02/21/24 Wali Sullivan DO [address] [place] [address] PCP - General Internal Medicine 02/22/24 documented as of this encounter
--- OUTSIDE RECORDS SUMMARY | 2024-03-22 10:58 | XMS_ITS | Clinical Summary ---
Author Organization [facility] Address [address] [place] [address] Care Team Providers Care Icu Specialist Name Role Phone Wali Sullivan DO Primary Care Provider [phone] Allergies Active Allergy Reactions Criticality Noted Date Comments Cefuroxime Nausea only High 11/04/2021 Fish Oil (Anchovy, Sardine) Stomach upset Low 11/04 Xylitol Stomach upset High 11/04/2021 Medications Euthyrox 125 mcg tablet Take 1 tablet (125 mcg total) by mouth daily 08/09/2021 Active Osphena 60 mg tablet Take 1 tablet by mouth 08/11/2021 Active turmeric 400 mg capsule turmeric 400 mg capsule Active multivitamin tablet Multiple Vitamin tablet take 1 tablet by oral route every day with food 04/18/2011 Active magnesium oxide,aspartate ,citr 400 mg magnesium capsule 800 mg Active calcium carbonate-vitam in D3 1,500 mg (600mg elemental) -800 unit per tablet 2 (two) times a day 05/05/2008 Active sour navas extract (TART NAVAS EXTRACT ORAL) Tart Navas Active vitamin B complex (B COMPLEX 1 ORAL) Super B Complex + C 150 mg tablet Active flaxseed oiL 1,000 mg capsule Flax Seed Oil Active vitamin E (AQUASOL E) 400 unit capsule vitamin E 100 unit capsule Active ascorbic acid (VITAMIN C) 1,000 mg tablet Vitamin C 1,000 mg tablet 05/05/2008 Active cholecalciferol (VITAMIN D-3) 2000 unit capsule 1 capsule (2,000 Units total) Active cyclobenzaprine (FLEXERIL) 10 mg tablet Take 1 tablet (10 mg total) by mouth 2 (two) times a day as needed Active chlorthalidone (HYGROTON) 25 mg tablet Take 1 tablet by mouth once daily 90 tablet 1 02/15/2024 Active Active Problems Problem Noted Date Diagnosed Date Dermatitis of eyelid 04/19/2016 Skin tag 04/19/2016 Skin benign neoplasm 01/18/2016 Keratosis, senilis 01/18/2016 Angioma 01/18/2016 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 Onychomycosis 05/11/2015 Encounters Date Type Department Care Team Description 03/06/2024 Orders Only [facility] Endocrinology Metabolism and Lipid [address] [place] [phone] Nichole Webber RMA Hypercalciuria (Primary Dx) 01/17/2024 Orders Only [facility] Endocrinology Metabolism and Lipid [address] [place] [phone] Jaja Erickson DO Osteopenia, unspecified location (Primary Dx); Hypercalciuria 01/12/2024 Orders Only [facility] Endocrinology Metabolism and Lipid [address] [place] [phone] Jaja Erickson DO 01/08/2024 Orders Only [facility] Endocrinology Metabolism and Lipid [address] [place] [phone] Nichole Webber RMA Hypercalciuria (Primary Dx) 01/05/2024 Orders Only [facility] Endocrinology Metabolism and Lipid [address] [place] [phone] Jaja Erickson DO from Last 3 Months Surgical History Surgery Date Site/Laterality Comments ADHESIOLYSIS CHOLECYSTECTOMY Medical History Medical History Date Comments Hypothyroidism Family History Medical History Relation Name Comments No Known Problems Daughter Coronary artery disease Father hypertension Father diabetes mellitus type 2 Mother No Known Problems Son Relation Name Status Comments Daughter Alive Father Mother Son Alive Social History Tobacco Use Types Packs/Day Years Used Date Smoking Tobacco: Never Passive Smoke Exposure: Never Smokeless Tobacco: Never Tobacco Cessation:Counseling Given: Not Answered AUDIT-C Answer Date Recorded Q1: How often [...] on file Legal Sex Female 4:48 AM POURED WALL FOREMAN Gender Identity Female 11/10/2023 7:03 PM CDT Sexual Orientation Straight 11/10/2023 7: 03 PM CDT Obstetrics History Last Filed Vital Signs Vital Sign Reading Time Taken Comments Blood Pressure 131/76 08/03/2023 10:57 AM CDT Pulse 77 08/03/2023 10:57 AM CDT Temperature 36.4 C (97.6 F) 08/03/2023 10:57 AM CDT Respiratory Rate - - Oxygen Saturation 96% 08/03/2023 10:57 AM CDT Inhaled Oxygen Concentration - - Weight 69.5 kg (153 lb 3.2 oz) 08/03/2023 10:57 AM CDT Height 177.8 cm (5' 10 ) 08/03/2023 10:57 AM CDT Body Mass Index 21.98 08/03/2023 10:57 AM CDT Plan of Treatment Health Maintenance Due Date Last Done Comments Cervical Cancer Screening 1966 Colon Cancer Screening-Colonoscopy 1966 Depression Screening 1966 Hepatitis C Screening 1966 DTaP/Tdap/Td Vaccine (1 - Tdap) 1977 Hepatitis B Screening 1984 Regular Well Visit/Exam 18-64 1984 Breast Cancer Screening-Mammogram 03/27/2023 03/27/2022, 03/03/2021, 02/10/2020 Influenza Vaccine (#1) 2023 , 11/10/2017, 11/11/2016, Additional history exists Zoster Vaccine Completed 06/10/2021, 03/26/2021 Pneumococcal vaccine <65 Aged Out No longer eligible based on patient's age to complete this topic Procedures Procedure Name Priority Date/Time Associated Diagnosis Comments TEST IN QUESTION- MISC QUESTION Routine 02/16/2024 10:23 AM POURED WALL FOREMAN CREATININE, URINE, 24 HOUR Routine 02/16/2024 10:23 AM POURED WALL FOREMAN Osteopenia, unspecified location Hypercalciuria CALCIUM, URINE, 24 HOUR Routine 02/16/2024 10:23 AM POURED WALL FOREMAN Osteopenia, unspecified location Hypercalciuria CALCIUM, URINE, 24 HOUR Routine 01/12/2024 9:24 AM POURED WALL FOREMAN CALCIUM, URINE, 24 HOUR Routine 01/05/2024 10:22 AM POURED WALL FOREMAN CREATININE, URINE, 24 HOUR Routine 01/05/2024 10:21 AM POURED WALL FOREMAN Hypercalciuria from Last 3 Months Results * [facility] (02/16/2024 10:23 AM POURED WALL FOREMAN) Question/Problem [facility] Comment: There is a question regarding the following specimen submitted and/or the test requested. QUESTION: TIME LISTED 34. IS IT 24 HR/RANDOM? [facility] Comment [facility] Comment: REQUESTED INFORMATION AUTHORIZED SIGNATURE TO PREVENT FURTHER DELAYS IN TESTING, PLEASE COMPLETE INFORMATION ABOVE AND FAX TO [phone] TO RESOLVE THIS ORDER. 02/16/2024 10:2 3 AM POURED WALL FOREMAN 02/20/2024 5:00 AM POURED WALL FOREMAN Narrative [facility] - 02/22/2024 11:37 AM POURED WALL FOREMAN URINE VOLUME: 3500/34 us Jaja Erickson DO LAB BLOOD ORDERABLES Fi nal Result [facility] [id number] [address] * (ABNORMAL) Calcium, urine, 24 hour (02/16/2024 10:23 AM POURED WALL FOREMAN) Calcium, 24 hour ur 371(H) mg/24 h [facility] Comment: Reference Range 35-250 Low calcium diet 35-200 URINE VOLUME: 3500/24 Urine 02/16/2024 10:2 3 AM POURED WALL FOREMAN 02/20/2024 5:00 AM POURED WALL FOREMAN Jaja Erickson DO LAB URINE ORDERABLES Fi nal Result Performing Organization Address [facility] de Phone Number [facility] [address] [place] [address] * Creatinine, urine, 24 hour (02/16/2024 10:23 AM POURED WALL FOREMAN) Creatinine, 24 hour ur 1.33 0.50 - 2.15 g/24 h [facility] Comment:URINE VOLUME: 3500/2 4 Urine 02/16/2024 10:2 3 AM POURED WALL FOREMAN 02/20/2024 5:00 AM POURED WALL FOREMAN Jaja Erickson DO LAB URINE ORDERABLES Fi nal Result Performing Organization Address [facility] Phone Number [facility] [address] [place] [address] * (ABNORMAL) Calcium, urine, 24 hour (01/12/2024 9:24 AM POURED WALL FOREMAN) Calcium, 24 hour ur 371(H) mg/24 h [facility] Comment: Reference Range 35-250 Low calcium diet 35-200 URINE VOLUME: 3500/24 01/12/2024 9:24 AM POURED WALL FOREMAN 01/12/2024 9:26 AM POURED WALL FOREMAN Narrative [facility] - 01/15/2024 12:26 PM POURED WALL FOREMAN PATIENT REFUSED SOME TESTING; PATIENT ENCOURAGED TO RETURN. Jaja Erickson DO LAB URINE ORDERABLES Fi nal Result Performing Organization Address [facility] Co de Phone Number [facility] [address] [place] [address] * Calcium, urine, 24 hour (01/05/2024 10:22 AM POURED WALL FOREMAN) Calcium, 24 hour ur TNP mg/24 h [facility] Comment: TEST NOT PERFORMED Specimen leaked in transit. URINE VOLUME: 3500/24 01/05/2024 10:2 2 AM POURED WALL FOREMAN 01/08/2024 12:40 AM POURED WALL FOREMAN Jaja Doss Georgina DO LAB URINE ORDERABLES Fi nal Result Performing Organization Address [facility]/ZIP Co de Phone Number [facility] [address] [facility] [place] [address] * Creatinine, urine, 24 hour (01/05/2024 10:21 AM POURED WALL FOREMAN) Creatinine, 24 hour ur 1.40 0.50 - 2.15 g/24 h [facility] Comment:URINE VOLUME: 3500/2 4 Urine 01/05/2024 10:2 1 AM POURED WALL FOREMAN 01/08/2024 12:02 AM POURED WALL FOREMAN Jaja Doss Georgina DO LAB URINE ORDERABLES Fi nal Result Performing Organization Address [facility] Co de Phone Number CARLA [employer] [address] [place] [address] from Last 3 Months Insurance [facility] FED[employer]AL [facility] [employer] Care Teams Icu Specialist Relationship Specialty Start Date End Date Wali Sullivan DO [address] [place] [address] PCP - General Internal Medicine 02/22/24
--- OUTSIDE RECORDS SUMMARY | 2024-03-22 10:58 | XMS_ITS | Referral Summary ---
Author Organization [facility] Address [address] [place] [address] Care Team Providers Care Data Warehouse Administrator Name Role Phone Wali Sullivan Primary Care Provider [phone] Encounters Date Type Department Care Team Description 03/06/2024 Orders Only [facility] Endocrinology Metabolism and Lipid [address] [facility] 2nd Floor [address] [place] [phone] Nichole Webber RMA Hypercalciuria (Primary Dx) 01/17/2024 Orders Only [facility] Endocrinology Metabolism and Lipid [address] [place] [phone] Jaja Erickson DO Osteopenia, unspecified location (Primary Dx); Hypercalciuria 01/12/2024 Orders Only [facility] Endocrinology Metabolism and Lipid [address] [place] [phone] Jaja Erickson DO 01/08/2024 Orders Only [facility] Endocrinology Metabolism and Lipid [address] [place] [phone] Nichole Webber RMA Hypercalciuria (Primary Dx) 01/05/2024 Orders Only 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 Onychomycosis 05/11/2015 Social History Tobacco Use Types Packs/Day Years [...] on file Legal Sex Female 4:48 AM COILER Gender Identity Female 11/10/2023 7:03 PM CDT Sexual Orientation Straight 11/10/2023 7: 03 PM CDT Last Filed Vital Signs Vital Sign Reading [...] 08/03/2023 10:57 AM CDT Plan of Treatment Not on file Procedures Procedure Name Priority Date/Time Associated Diagnosis Comments TEST IN QUESTION- MISC QUESTION Routine 02/16/2024 10:23 AM COILER CREATININE, URINE, 24 HOUR Routine 02/16/2024 10:23 AM COILER Osteopenia, unspecified location Hypercalciuria CALCIUM, URINE, 24 HOUR Routine 02/16/2024 10:23 AM COILER Osteopenia, unspecified location Hypercalciuria CALCIUM, URINE, 24 HOUR Routine 01/12/2024 9:24 AM COILER CALCIUM, URINE, 24 HOUR Routine 01/05/2024 10:22 AM COILER CREATININE, URINE, 24 HOUR Routine 01/05/2024 10:21 AM COILER Hypercalciuria from Last 3 Months Results * TEST IN QUESTION- MISC QUESTION (02/16/2024 10:23 AM COILER) Question/Problem [facility] Comment: There is a question regarding the following specimen submitted and/or the test requested. QUESTION: TIME LISTED 34. IS IT 24 HR/RANDOM? [facility] Comment [facility] Comment: REQUESTED INFORMATION AUTHORIZED SIGNATURE TO PREVENT FURTHER DELAYS IN TESTING, PLEASE COMPLETE INFORMATION ABOVE AND FAX TO [phone] TO RESOLVE THIS ORDER. 02/16/2024 10:2 3 AM COILER 02/20/2024 5:00 AM COILER Narrative [facility] - 02/22/2024 11:37 AM COILER URINE VOLUME: 3500/34 [facility] LAB BLOOD ORDERABLES Fi nal Result Performing Organization Address [facility]/ZIP Co de Phone Number [facility] [address] [facility] [place] [address] * (ABNORMAL) Calcium, urine, 24 hour (02/16/2024 10:23 AM COILER) Calcium, 24 hour ur 371(H) mg/24 h [facility] Comment: Reference Range 35-250 Low calcium diet 35-200 URINE VOLUME: 3500/24 Urine 02/16/2024 10:2 3 AM COILER 02/20/2024 5:00 AM COILER Jaja Selam Georgina DO LAB URINE ORDERABLES Fi nal Result Performing Organization Address [facility]/ZIP Co de Phone Number [facility] [address] [place] [address] * Creatinine, urine, 24 hour (02/16/2024 10:23 AM COILER) Creatinine, 24 hour ur 1.33 0.50 - 2.15 g/24 h [facility] Comment:URINE VOLUME: 3500/2 4 Urine 02/16/2024 10:2 3 AM COILER 02/20/2024 5:00 AM COILER us Jaja Erickson DO LAB URINE ORDERABLES Fi nal Result Performing Organization Address [facility] de Phone Number [facility] [address] [place] [address] * (ABNORMAL) Calcium, urine, 24 hour (01/12/2024 9:24 AM COILER) Calcium, 24 hour ur 371(H) mg/24 h [facility] Comment: Reference Range 35-250 Low calcium diet 35-200 URINE VOLUME: 3500/24 01/12/2024 9:24 AM COILER 01/12/2024 9:26 AM COILER Narrative [facility] - 01/15/2024 12:26 PM COILER PATIENT REFUSED SOME TESTING; PATIENT ENCOURAGED TO RETURN. Jaja Erickson DO LAB URINE ORDERABLES Fi nal Result Performing Organization Address [facility] de Phone Number [facility] [address] [place] [address] * Calcium, urine, 24 hour (01/05/2024 10:22 AM COILER) Calcium, 24 hour ur TNP mg/24 h [facility] Comment: TEST NOT PERFORMED Specimen leaked in transit. URINE VOLUME: 3500/24 01/05/2024 10:2 2 AM COILER 01/08/2024 12:40 AM COILER us Jaja Erickson DO LAB URINE ORDERABLES Fi nal Result Performing Organization Address [facility] de Phone Number [facility] [address] [facility] [place] [address] * Creatinine, urine, 24 hour (01/05/2024 10:21 AM COILER) Creatinine, 24 hour ur 1.40 0.50 - 2.15 g/24 h [facility] Comment:URINE VOLUME: 3500/2 4 Urine 01/05/2024 10:2 1 AM COILER 01/08/2024 12:02 AM COILER us Jaja Erickson DO LAB URINE ORDERABLES Fi nal Result [email or web address] [address] [place] [address] from Last 3 Months Insurance [facility] FED[employer]AL [facility] [employer] Care Teams Data Warehouse Administrator Relationship Specialty Start Date End Date Wali Sullivan DO [address] [facility] [address] [place] [address] PCP - General Internal Medicine 02/22/24
[2024-03-22 15:05] LABS: Creatinine Urine 44.3 mg/dL
[2024-03-22 15:20] LABS: Creatinine 24 Hour Urine 1.2 gm/24 (0.8-1.8); Total Volume 24 Hour Urine 2900 ml
== END 2024-03-22 10:56 | disposition home or self-care (01) ==
PROVIDERS: PCP Internal Medicine
DX: R82.994 Hypercalciuria (principal)
CPT/HCPCS: 81050; 82340; 82570